=== PATIENT | male | born 2000 ===

== ENCOUNTER 2025-03-17 10:00 | Outpatient (RCR) | payer BC, SELFPAY ==
--- NOTE | 2025-03-17 14:42 | HO.IOP ---
Client case was reviewed and opened in teams.
[2025-03-17 14:43] VITALS: BP 128/80; PULSE 100; RESP 16; TEMP 36.6; O2SAT 98
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
== END 2025-03-17 14:10 | disposition home or self-care (01) ==
LOC: HO.IOP 10:00
PROVIDERS: Visit Provider Psychiatry & Neurology Psychiatry
DX: F41.1 Generalized anxiety disorder (principal); F12.90 Cannabis use, unspecified, uncomplicated; F39 Unspecified mood [affective] disorder
CPT/HCPCS: 90791; S9480

== ENCOUNTER 2025-04-04 13:11 | Emergency (ER) | payer BC, SELFPAY ==
[2025-04-04 13:32] VITALS: BP 128/60; PULSE 86; RESP 18; TEMP 36.4; O2SAT 96; BMI 26.6
[2025-04-04 13:38] VITALS: BP 128/60; PULSE 86; RESP 18; TEMP 36.4; O2SAT 96
--- NOTE | 2025-04-04 13:40 | PC.NURSE ---
24 M coming from a rehab facility for agitation, yelling, concerns for patients mood and some SI statements per sending rehab facility. A+Ox4, anxious, cooperative. Pt denies any SI or HI at this time. Safety check complete and pt changed over. Belongings secured. C/o chronic 6/10 back pain, no other complaints. RR even and unlabored, denies CP or SOB. Pt is ambulatory. pt is on a section 12, in chart.
--- NOTE | 2025-04-04 14:37 | PC.NURSE ---
Report called to RAFA Leonard in pod.
--- NOTE | 2025-04-04 14:41 | ED_ITS ---
HPI - Psych General Chief Complaint: Psychiatric Symptoms Stated Complaint: from PHP Time Seen by Provider: 04/04/25 14:17 Source: patient Mode of arrival: ambulatory Limitations: no limitations History of Present Illness ED Provider: Jayy York PA-C HPI Narrative: 24 yo male with history of generalized anxiety disorder, mood disorder, cannabis use who presents to the ER from partial hospitalization program for evaluation of agitation occurred at the program today. Patient reports that he had extreme frustration and a panic attack when he was at the program. He admits to yelling out and being very unreasonable. He states he feels like he was punished by being brought to the ER. He arrives to the ER calm, cooperative. He reports chronic back pain for last 3 months due to herniated disc that is causing him both physical and mental distress. He states he used to have a job, apartment, ?a normal life? until his back pain spiraled out of control. He is being followed by pain specialist and orthopedist, he has an appointment for a cortisone shot tomorrow in [place]. His mother is bringing him. He lives at home with his mother who is also present here in the ER today. Patient is expressing extreme frustration that his mental health providers are telling him to focus on his back pain and his back pain providers are telling him to focus on his mental health. He adamantly denies any suicidal thought or homicidal thought. He denies any hallucinations. complaint: feels depressed Onset (ago): month(s) Duration: constant History of same: Yes Context: significant life stressor Associated psychiatric symptoms: depression and racing thoughts Associated symptoms: denies other symptoms Treatments prior to arrival: placed on mental health hold Related Data Home Medications ?Medication ?Instructions ?Recorded ?Confirmed alprazolam 1 mg tablet 1 mg PO BID PRN anxiety komal ck 03/17/25 03/17/25 buspirone 10 mg tablet 10 mg PO BID 03/17/25 clonazepam 0.5 mg tablet 0.5 mg PO BID 03/17/2503/24 gabapentin 300 mg capsule 300 mg PO TID 03/17/2503/24 propranolol 20 mg tablet 20 mg PO DAILY PRN anxiety 0 03/17/25 03/24/25 ziprasidone HCl 40 mg capsule 40 mg PO BID 03/17/25 Allergies Allergy/AdvReac Type Severity Reaction Status Date / Time morphine Allergy Unknown Verified 04/04/25 13:37 Review of Systems Review of Systems: Yes all other systems are reviewed and are negative [facility] Social History Social History Household Members: Family Patient Tobacco Use Status: Never used Tobacco Smoked in Last 30 Days: No Use of substances other than those prescribed or required for medical reasons: No Advance Directives: No Advance Directives Information Provided: No Do you have a plan to hurt others: No Plan Physical Exam Exam: Exam: Appearance: Alert. Oriented X3. No acute distress. Head: normocephalic, atraumatic. Eyes: Pupils equal, round and reactive to light. ENT: Pharynx normal. No tonsillar swelling or exudate. Neck: Normal inspection. Neck supple. CVS: Normal heart rate and rhythm. Pulses normal. Respiratory: No respiratory distress. Breath sounds normal. Skin: Skin warm and dry. Normal skin color. Normal skin turgor. No rashes. Extremities: No lower extremity edema. No joint swelling. Neuro/psych: Oriented X 3. No motor deficit. No sensory deficit. CN II-XII intact. Normal speech and cognition, frustrated and hyperverbal at times. good insight. Mood is scared no SI or HI Vital Signs: Vital Signs: Last Vital Signs Temp 97.5 F 04/04/25 15:31 Pulse 86 04/04/25 15:31 Resp 18 04/04/25 15:31 BP 128/60 04/04/25 15:31 Pulse Ox 96 04/04/25 15:31 O2 Del Method Room Air 04/04/25 15:31 BMI result Body Mass Index 26.6 Medications Administered Discontinued Medications Generic Name Dose Route Start Last Admin Trade Name Vadimq PRN Reason Stop Dose Admin Acetaminophen 975 mg 04/04/25 15:07 04/04/25 15:23 Acetaminophen 325 Mg Tablet PO 04/04/25 15:08 975 mg ONCE ONE Administration Lidocaine 1 patch 04/04/25 15:07 04/04/25 15:23 Lidocaine 4 % Patch Adh..Patch TRANSDERMA 04/04/25 15:08 1 patch ONCE ONE Administration Protocol Lorazepam 1 mg 04/04/25 15:07 04/04/25 15:23 Lorazepam 1 Mg Tablet PO 09/29/25 15:08 1 mg ONCE ONE Administration Tramadol HCl 50 mg 04/04/25 15:07 04/04/25 15:22 Tramadol Hcl 50 Mg Tablet PO 04/04/25 15:08 50 mg ONCE ONE Administration Medical Decision Making Medical Decision Making MDM Narrative: 24-year-old male with history of generalized anxiety disorder, mood disorder, severe back pain for the last 3 months which is affecting his physical and mental health presenting to the hospital from partial hospitalization on a section 12 for evaluation of agitated behavior. Patient endorses having a ?mental breakdown and panic attack? today at the program. He was yelling out and agitated. He is very frustrated with his medical care and his psychiatric care. He arrives to the ER calm, cooperative. His mother is with him. He denies any suicidal or homicidal thoughts. He endorses nervousness and anxiety about treating his back pain. He feels he is unable to address fully his mental health issues because of his physical health. Seen by crisis team and deemed safe for discharge. I am in agreement, he lives at home with his mother who will take him home, bring him to [place] for his cortisone injection tomorrow, will plan to continue partial hospitalization program. Comfortable discharge home with outpatient follow-up. Mother and patient are in agreement. Differential Diagnosis Differential Diagnoses: The differential diagnosis associated with the presentation includes substance induced mood disorder, acute psychosis, adjustment disorder, acute pain reaction, PTSD, bipolar disorder, major depression with psychotic features Admission/Observation Consideration of admission/observation: Escalation of care including admission/observation considered Consult Healthcare Provider Management of the patient was discussed with: Electric Meter Repairer Apprentice care team leader/research psychologist Independent Historian Clinical information obtained from an independent historian. History obtained from or confirmed by: EMS External Record Review External record reviewed: Outpatient record Tests considered The following testing was considered but not selected: labs and tox, does not appear to be intoxicated Prescription Management I considered prescription management with: Pain Medication Chronic Conditions Patient?s care impacted by: Other (Chronic back pain) Social Determinants Patient?s care significantly limited by Social Determinants of Health including: Problems related to primary support group Critical Care Time Critical Care Time Critical Care Time: No Discharge Plan Discharge Clinical Impression: Acute anxiety Patient Disposition: Home, Self-Care Instructions: Acute Low Back Pain (ED), Anxiety (ED) Additional Instructions: it is important for you to get treatment for your back pain follow up with pain management tomorrow as scheduled continue with partial hospitalization follow up with your psychiatrist, therapist and medical provider If you develop new or worsening symptoms call 911 or come back to the ER for further evaluation. Prescriptions: No Action alprazolam 1 mg tablet 1 mg PO BID PRN (Reason: anxiety attack) clonazepam 0.5 mg tablet 0.5 mg PO BID buspirone 10 mg tablet 10 mg PO BID gabapentin 300 mg capsule 300 mg PO TID ziprasidone HCl 40 mg capsule 40 mg PO BID propranolol 20 mg tablet 20 mg PO DAILY PRN (Reason: anxiety) Interventions: [place]-Suicide Risk Severity Scale Last Done: 04/04/25 13:38 ED Discharge Assessment Last Done: 04/04/25 15:31 Discharge Date/Time: 04/04/25 15:49 Print Language: Icelandic
[2025-04-04] MEDS: Lidocaine 4 % Patch ADH..PATCH 1 PATCH TRANSDERMA (15:23)
[2025-04-04 15:31] VITALS: BP 128/60; PULSE 86; RESP 18; TEMP 36.4; O2SAT 96
--- OUTSIDE RECORDS SUMMARY | 2025-04-04 17:45 | XMS_ITS | Encounter Summary ---
Author Organization [facility] Address [address] [place] [id number] Care Team Providers Care Plaster Helper Name Role Phone Suraj Carlson MD Primary Care Provider [phone] Encounter Details Date Type Department Care Team ([facility] st Contact Info) Description 11/07/2020 Scanned Document [facility] [address] [facility] [address] [facility] [address] [place] [address] Provider, [facility] . Social History Tobacco Use Types Packs/Day Years Used Date Smoking Tobacco: Never Smokeless Tobacco: Never Alcohol Use Standard Drinks/Week Comments Not Currently 0 (1 standard drink = 0.6 oz pur e alcohol) Sex and Gender Information Value Date Recorded Sex Assigned at Not on file Legal Sex Male 9:32 AM EST Gender Identity Not on file Sexual Orientation Not on file COVID-19 Exposure Response Date Recorded In the last month, have you been in contact with someone who was confirmed or suspected to have Coronavirus / COVID-19? No / Unsure 11/02/2020 11:01 AM EDT documented as of this encounter Plan of Treatment Not on file documented as of this encounter Procedures Procedure Name Priority Date/Time Associated Diagnosis Comments ANORECTAL MANOMETRY Routine 11/07/2020 documented in this encounter Results * Anorectal Manometry (11/07/2020) us Historical Provider GI PROCEDURE ORDERABLES Cat l Result documented in this encounter Visit Diagnoses Not on filedocumented in this encounter Care Teams Plaster Helper Relationship Specialty Start Date End Date Suraj Carlson MD [address] [facility] [address] [place] [address] PCP - General Internal Medicine 11/01/20 documented as of this encounter
--- OUTSIDE RECORDS SUMMARY | 2025-04-04 17:45 | XMS_ITS | Encounter Summary ---
Author Organization [facility] Address [address] [place] [address] Care Team Providers Care Merchandise Support Associate Name Role Phone Suraj Carlson Primary Care Provider [phone] Reason for Visit * Reason Comments Medication Refill Encounter Details Date Type Department Care Team (Latest Contact Info) Description 10/17/2020 Refill [facility] Neurogastroenterology [place] [address] [place] [address] Jerome Sandy MD [address] [facility] [address] [place] [address] Chronic idiopathic constipation Social History Tobacco Use Types Packs/Day Years Used Date Smoking Tobacco: Never Smokeless Tobacco: Never Alcohol Use Standard Drinks/Week Comments Not Currently 0 (1 standard drink = 0.6 oz pur e alcohol) Sex and Gender Information Value Date Recorded Sex Assigned at Not on file Legal Sex Male 11:30 AM EST Gender Identity Not on file Sexual Orientation Not on file documented as of this encounter Plan of Treatment Not on file documented as of this encounter Visit Diagnoses Diagnosis Chronic idiopathic constipation Unspecified constipation documented in this encounter Care Teams Merchandise Support Associate Relationship Specialty Start Date End Date Suraj Carlson [address] [facility] [address] [place] [address] PCP - General 09/08/20 documented as of this encounter
--- OUTSIDE RECORDS SUMMARY | 2025-04-04 17:45 | XMS_ITS | Encounter Summary ---
Author Organization [facility] Address [address] [place] [address] Care Team Providers Care Aluminum Can Collector Name Role Phone Suraj Carlson Primary Care Provider Encounter Details Date Type Department Care Team (Late st Contact Info) Description 10/23/2020 Mobile [facility] Neurogastroenterology [place] [address] [place] [id number] Jerome Sandy MD [address] [facility] [address] [place] [address] Social History Tobacco Use Types Packs/Day Years [...] documented as of this encounter Visit Diagnoses Not on filedocumented in this encounter Care Teams Aluminum Can Collector Relationship Specialty Start Date End Date Suraj Carlson [address] [facility] [address] [place] [address] PCP - General 09/08/20 documented as of this encounter
--- OUTSIDE RECORDS SUMMARY | 2025-04-04 17:45 | XMS_ITS | Clinical Summary ---
Author Organization [facility] Address [facility] [place] [address] Care Team Providers Care Roller Pneumatic Name Role Phone None Primary Care Provider Unavailabl e Allergies No known active allergies Medications ketorolac (TORADOL) 10 mg Tablet Take 1 tablet by mouth every 6 hours as needed for Pain. 20 tablet 03/01/2018 Active ondansetron (ZOFRAN ODT) 4 mg Tablet, Rapid Dissolve Take 1 tablet by mouth every 8 hours as needed for Nausea. 12 tablet 03/01/2018 Active polyethylene glycol (MIRALAX) 17 gram Powder in Packet Take 17 g by mouth 2 times daily as needed (Constipati on). 14 each 3 03/01/2018 Active Social History Tobacco Use Types Packs/Day Years Used Date Smoking Tobacco: Never Smokeless Tobacco: Never Alcohol Use Standard Drinks/Week Comments No 0 (1 standard drink = 0.6 oz pur e alcohol) Sex and Gender Information Value Date Recorded Sex Assigned at Not on file Legal Sex Male 6:47 PM EDT Gender Identity Not on file Sexual Orientation Not on file Last Filed Vital Signs Vital Sign Reading Time Taken Comments Blood Pressure 135/74 04/20/2018 3:30 PM EDT Pulse 74 04/20/2018 3:30 PM EDT Temperature 36.9 C (98.4 F) 04/20/2018 3:30 PM EDT Respiratory Rate 18 04/20/2018 3:30 PM EDT Oxygen Saturation 97% 04/20/2018 3:30 PM EDT Inhaled Oxygen Concentration - - Weight 106.6 kg (235 lb) 03/01/2018 6:55 PM EDT Height 180.3 cm (5' 11 ) 03/01/2018 6:55 PM EDT Body Mass Index 32.78 03/01/2018 6:55 PM EDT Plan of Treatment Health Maintenance Due Date Last Done Comments HPV vaccine (1 - Male 3-dose series) 12/11/2014 HIV screen 12/11/2017 Hepatitis C Screening 12/11/2017 Hepatitis B vaccine (0-59 yrs) and Risk (1) 12/11/2018 Tetanus/Diphtheria/Pertussis Vaccines (1 - Tdap) 12/11 Covid-19 Vaccine (1 - season) 2025 Influenza (Flu) vaccine (1 o f 1 - Influenza standard series) 03/07/2025 Insurance Care Teams Roller Pneumatic Relationship Specialty Start Date End Date None None PCP - General 02/04/18
--- OUTSIDE RECORDS SUMMARY | 2025-04-04 17:45 | XMS_ITS | Encounter Summary ---
Author Organization [facility] Address [address] [place] [address] Care Team Providers Care Tilesetter Name Role Phone Suraj Carlson Primary Care Provider [phone] Reason for Visit * Reason Onset Date Comments Medication Refill 10/20/2020 Encounter Details Date Type Department Care Team (Latest Contact Info) Description 10/20/2020 Refill [facility] Neurogastroenterology [place] [address] [place] [phone] Jerome Sandy MD [address] [facility] [address] [place] [address] Bloating; Nausea; Generalized abdominal pain Social History Tobacco Use Types Packs/Day Years [...] as of this encounter Visit Diagnoses Diagnosis Bloating Flatulence, eructation, and gas pain Nausea Nausea alone Generalized abdominal pain Abdominal pain, generalized documented in this encounter Care Teams Tilesetter Relationship Specialty Start Date End Date Suraj Carlson [address] [facility] [address] [place] [address] PCP - General 09/08/20 documented as of this encounter
--- OUTSIDE RECORDS SUMMARY | 2025-04-04 17:45 | XMS_ITS | Clinical Summary ---
Author Organization [facility] Address [address] [place] [address] Care Team Providers Care Bag Patcher Name Role Phone Suraj Carlson Primary Care Provider [phone] Allergies No known active allergies Medications polyethylene glycol (miraLAx) 17 g packet Take 17 g by mouth Once before discharge. Active venlafaxine (EFFEXOR) 75 MG tablet Take 225 mg by mouth. Active venlafaxine (EFFEXOR-XR) 150 MG 24 hr capsule TAKE 1 CAPSULE BY MOUTH ONCE A DAY TAKE ALONG WITH 75MG CAPSULE 1 Active venlafaxine (EFFEXOR-XR) 75 MG 24 hr capsule Take by mouth daily. 1 Active bisacodyl (DULCOLAX) 5 MG EC tabletIndications :Chronic idiopathic constipation Take 2 tablets (10 mg total) by mouth daily as needed for constipation . 60 tablet 1 1 Active prucalopride succinate (MOTEGRITY) 2 MG tabletIndications :Chronic idiopathic constipation Take 1 tablet (2 mg total) by mouth daily. 30 tablet 1 1 Active cyproheptadine (PERIACTIN) 4 MG tabletIndications :Bloating,Nausea, Generalized abdominal pain Take 1 tablet (4 mg total) by mouth 3 (three) times a day as needed for allergies. 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 01/05/2020 Abdominal pain 06/15/2017 Generalized anxiety disorder 03/27/2017 Pervasive developmental disorder 03/27/2017 Resolved Problems Problem Noted Date Diagnosed Date Resolved Date Ileitis 03/27/2017 09/18/2023 Family History Medical History Relation Name Comments Anxiety disorder Father Depression Father Sleep apnea Father Heart disease Maternal Grandfather Hypertension Maternal Grandmother Irritable bowel syndrome Maternal Grandmother Anxiety disorder Mother Depression Mother Hyperlipidemia Mother Sleep apnea Mother Relation Name Status Comments Father Alive Maternal Grandfather Maternal Grandmother Alive Mother Alive Social History Tobacco Use Types Packs/Day Years [...] Sign Reading Time Taken Comments Blood Pressure 102/70 09/12/2020 9:50 AM EST Pulse - - Temperature - - Respiratory Rate - - Oxygen Saturation - - Inhaled Oxygen Concentration - - Weight 67.1 kg (148 lb) 10/09/2020 11:28 AM EDT Height 180.3 cm (5' 11 ) 10/09/2020 11:28 AM EDT Body Mass Index 20.64 10/09/2020 11:28 AM EDT Plan of Treatment Health Maintenance Due Date Last Done Comments Hepatitis C Virus Screening 1999 HIV Screening 12/11/2012 HPV Vaccines (1 - Male 3-dos e series) 12/11/2014 DTaP/Tdap/Td Vaccines (1 - Tdap) 12/11/2018 Hepatitis B Vaccines (1 of 3 - 19+ 3-dose series) 12/11/2018 Influenza Vaccine 02/04/2025 COVID-19 Vaccine (1 - 2023-2 5 season) 2025 Pneumococcal Vaccine: Pediat twan (0-5 Years) and At-Risk Patients (6 to 49 Years) Aged Out No longer eligible b ased on patient's age to complete this [place] [address] [facility] - HMO Care Teams Bag Patcher Relationship Specialty Start Date End Date Suraj Carlson [address] [facility] [address] [place] [address] PCP - General 09/08/20
--- OUTSIDE RECORDS SUMMARY | 2025-04-04 17:45 | XMS_ITS | Clinical Summary ---
Author Organization [address] Address [address] [place] [id number] Care Team Providers Care Child Care Education Coordinator Name Role Phone Suraj Carlson MD Primary Care Provider [phone] Allergies No known active allergies Medications * This document contains information received from the source organization and may not represent a complete record from that organization. bisacodyL (DULCOLAX) 5 mg EC tablet Take 10 mg by mouth daily as needed. 10/09/2020 Active cyproheptadine (PERIACTIN) 4 mg tablet Take 4 mg by mouth 4 (four) times daily with meals and nightly. 10/25/2020 Active polyethylene glycol (MIRALAX) 17 gram packet Take 17 g by mouth daily. Mix in 8 ounces of water, juice, soda, coffee or tea prior to taking. Active venlafaxine (EFFEXOR) 100 mg Immediate Release tablet Take 112 mg by mouth 2 (two) times daily. Active Social History Tobacco Use Types Packs/Day Years Used Date Smoking Tobacco: Never Smokeless Tobacco: Never Alcohol Use Standard Drinks/Week Comments Not Currently 0 (1 standard drink = 0.6 oz pur e alcohol) Sex and Gender Information Value Date Recorded Sex Assigned at Not on file Legal Sex Male 9:32 AM EST Gender Identity Not on file Sexual Orientation Not on file Plan of Treatment Health Maintenance Due Date Last Done Comments HIV screening 12/11/2012 Hepatitis C screening 12/11/2017 HPV vaccine series (3 - Male 3-dose series) 04/29/2018 02/04/2018, 10/11/2016 Influenza vaccine 02/04/2025 09/08/2019, , 05/05/2014, Additional history exists Covid-19 vaccine series (3 - 2024- season) 2025 11/16/2020, 10/26/2020 DTaP/TDaP Vaccines (8 - Td or Tdap) 02/21/2031 02/21/2021, 01/01/2011, 01/31/2005, Additional history exists Tetanus adult (Td q 10,TDAP once) 02/21/2031 02/21/2021, 01/01/2011, 01/31/2005, Additional history exists RSV Immunization (1 - 1-dose 75+ series) 12/11/2074 Hepatitis B vaccine series Completed 09/16, 02/18/2000, 01/10/2000 HIB Vaccines Completed 04/01/2001, 06/06, 04/07/2000, Additional history exists Pneumococcal Vaccine (2 - 49 years) Aged Out 04/01/2001, 06/17/2000, 04/07/2000 No longer eligible based on patient's age to complete this topic IPV Vaccines Completed 01/31/2005, 07/08, 04/07/2000, Additional history exists MMR Vaccines Completed 01/31/2005, 12/22/2000 Varicella Vaccines Completed 01/01/2011, 12/22/2000 Meningococcal Vaccine Completed 10/11/2016, 011 Hepatitis A Vaccines Aged Out No long er eligible based on patient's age to complete this topic Meningococcal B Vaccine Aged Out No l onger eligible based on patient's age to complete this topic Rotavirus Vaccines Aged Out No longer eligible based on patient's age to complete this topic Insurance [facility] Care Teams Child Care Education Coordinator Relationship Specialty Start Date End Date Suraj Carlson MD [facility] [address] [place] [id number] PCP - General Internal Medicine 11/01/20
--- OUTSIDE RECORDS SUMMARY | 2025-04-04 17:45 | XMS_ITS | Encounter Summary ---
Author Organization [facility] Address [address] [place] [address] Care Team Providers Care Residential Driver Name Role Phone Suraj Carlson Primary Care Provider [phone] Reason for Visit * Reason Comments Other Encounter Details Date Type Department Care Team (Late st Contact Info) Description 11/16/2020 Telephone [facility] Neurogastroenterology [place] [address] [place] [id number] Jerome Sandy MD [address] [place] [address] Other Social History Tobacco Use Types Packs/Day Years [...] on file documented as of this encounter Miscellaneous Notes * Telephone Encounter - Jerome Sandy MD - 11/16/2020 1:49 PM EDT I???m unable to see these and he has transitioned his care to [place] and Dr Jordan. It???s best to stick with them until a treatment plan is developed. If no improvement we can take the baton. documented in this encounter Plan of Treatment Not on file documented as of this encounter Visit Diagnoses Not on filedocumented in this encounter Care Teams Residential Driver Relationship Specialty Start Date End Date Suraj Carlson [address] [place] [address] PCP - General 09/08/20 documented as of this encounter
== END 2025-04-04 15:49 | disposition home or self-care (01) ==
LOC: HO.ED 15:42
PROVIDERS: Emergency Provider Emergency Medicine; PCP Internal Medicine
DX: F41.9 Anxiety disorder, unspecified (principal); G89.29 Other chronic pain; M54.9 Dorsalgia, unspecified; F39 Unspecified mood [affective] disorder; Z79.899 Other long term (current) drug therapy
CPT/HCPCS: 99285; S9485

== ENCOUNTER 2025-04-07 11:30 | Outpatient (RCR) | payer BC, SELFPAY ==
[2025-03-17 14:30] VITALS: BP 128/80; PULSE 100; RESP 16; TEMP 36.6; O2SAT 98
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
--- NOTE | 2025-03-22 07:57 | HO.PHP ---
PHP staff member completed the online referral for OP therapy through [facility] and is awaiting on an appointment date and time.
--- NOTE | 2025-03-23 12:57 | HO.PHP ---
Manuel informed [facility] staff member that he will be leaving early today due to being in excruciating pain with his back. Manuel informed the clinician that he has no concerns around SI, plan or intent but did note that the pain is so bad that he feels it is going to kill him. [facility] staff member encouraged Manuel if his back pain is that severe to go to the ED or an urgent care. Manuel said what is that going to do for me and mentioned he does not want to go and he needs to leave now because his mother is waiting for him. Manuel did state that he was on the phone earlier with his doctor who will be seeing him in 6 weeks. Manuel mentioned if his pain improves he will be in attendance to program tomorrow. [facility] staff member was receptive.
--- NOTE | 2025-03-24 10:00 | HO.PHP ---
PHP admin, Tanisha, informed the team that Manuel will not be in attendance to program due to severe back pain.
--- NOTE | 2025-03-24 11:22 | HO.PHP ---
PHP staff member received an appointment for OP therapy through [facility]. Manuel's therapy appointment is scheduled for April 04, 2025 at 12 PM with Kavita Rubi via telehealth. ;
--- NOTE | 2025-03-25 08:00 | PC.NURSE ---
Staff report that patient mother called and stated that patient is c/o severe back pain thus will not be in the program today. He has another MRI scheduled for tomorrow.
--- NOTE | 2025-03-25 10:01 | HO.PHP ---
PHP admin, Tanisha, informed the team that Manuel's mother called stating that he will not be in attendance to program due to his chronic pain where he is unable to move. Manuel's mother voiced that he has an MRI scheduled for tomorrow. There were no safety concerns reported and he will be in attendance to program on Friday.
--- NOTE | 2025-03-28 17:00 | HO.PHP ---
PHP staff member reached out to Manuel but his phone went to voicemail, therefore, PHP staff member reached out to Manuel's mother Anna. Anna disclosed that Manuel wasn't in attendance to program today because he had a doctors appointment and asked if we had received that message. PHP staff member noted that we had, which is why she is reaching out due to our attendance policy. PHP staff member expressed that Manuel has missed 3 days of the program and has done 2 half days in the program due to his pain. Anna voiced that Manuel really would like to return to the program. PHP staff member said we would like for him as well and at this time our recommendation is that he addresses his medical issues because he is unable to get support around his mental health due to the pain being a distractions. Manuel's mother agreed and also voiced that they will be reaching out to pain management. [facility] staff encouraged her to have Manuel to call when he is feeling better and asked if he is hearing this conversation at this time. Manuel's mother said he is not but she can get him. Anna mentioned that she also knows that Manuel is awaiting on a therapy appointment and she would like to make sure he has that prior to discharging. PHP staff member said she was able to obtain that appointment which will be on April 04, 2025 at 12 with Caryl Rubi via [employer]. Manuel's mother was receptive. Manuel then came on the phone and was begging to not be discharged. PHP staff said that we strongly encourage that he focuses on his medical issues so that he can get everything he can from our program. Manuel said that he needs this and he can't discharge. Manuel said his orthopedist doctor told him that he needs this program because his pain is psychosomatic. Manuel was very disregulated and said that he feels as though he is getting punished for being in pain. PHP staff apologized for him feeling that way and said that she just would like for him to get the support needed. Manuel said it is very confusing because the program is encouraging him to focus on addressing his pain and his doctor is telling him to come to our program or inpatient. [facility] explored why his doctor would recommend inpatient. Manuel said because he was crying in his office. Manuel was struggling to regulate and kept stating he is being punished for what he thought was doing the right thing. [facility] staff informed Manuel that he could come to our program tomorrow and he could further discuss this with the med provider here. Manuel kept saying he can't go inpatient because of his pain. PHP staff tried to reassure him that there are medical doctors available as well if he is struggling with pain. Maneul was unable to hear what the clinician was informing him and continued to note that he is getting in trouble. PHP staff suggested that we contact crisis since he appears to be dysregulated. Manuel said he is fine and is crying cause he is in pain and feels no one is listening. Manuel kept crying stating he can't be discharged. PHP staff relayed again that we are not discharging him from the program but he cannot miss any additional days or leave early. Manuel appeared receptive and said he will sit through the pain cause he needs to work on his mental health. PHP staff did express her concerns around him receiving the level of support needed while here because she feels that his pain level is taking away from the therapeutic process. Manuel agreed but he said that his doctor is saying he needs to be at partial. PHP staff explored if he could get a second opinion if he is unsatisfied with this doctors response. Manuel said that was his second opinion and you can't get a third opinion with workers comp, they only say you can get two. [facility] staff was receptive and encouraged him to come tomorrow. Manuel apologized and said he will be in attendance to program tomorrow.
--- NOTE | 2025-03-30 14:14 | P.PNPSP_ITS ---
Subjective Subjective Date of Service: 03/30/25 Reason For Visit: depression Interim History: Met with patient; discussed with team; reviewed chart Patient reports that he is very frustrated upset with his outpatient PCP, pain management provider orthopedic doctor since he continues to be in pain and feels these providers are dismissive, telling him that his pain is primarily psychiatrically caused. Patient shares that 3 months ago, with the development of pain, his life has changed and he is unable to take care himself in any way. Discussed patient's ongoing depression and anxiety. Patient recently contacted his outpatient provider who restarted him on Cymbalta. Tactical Deception Plans Officer discussed that it is not tenable to have 2 different providers prescribing medications. Since he is going to his outpatient provider which seems to be his preference (even though he is still in partial day program), senior mortgage underwriter will defer medication management to his outpatient provider. Tactical Deception Plans Officer reviewed his medication regimen and went over options that he can discuss with his outpatient provider including continuing to titrate Cymbalta and/or go up on his buspirone. Patient reports side effects from Geodon, Risperdal, Lamictal Mental Status Exam Mental Status Exam Narrative: Pt is alert and oriented; behavior is irritable but cooperative; patient is not in distress; dressed in casual attire, baseball hat, glasses, adequate/appropriate grooming; mood is described as frustrated and affect congruent; eye contact appropriate; Speech is normal rate, volume and prosody and not pressured; no psychomotor agitation/retardation present; thought process is organized and goal directed; Thought content is on tx; otherwise pertinent to relevant topics and without any delusional content, paranoid ideations or grandiosity; denies any SI/HI. Denies AVH and there is no evidence of perceptual disturbance. Patients insight and judgment appear intact. Assessment & Plan Assessment & Plan (1) Mood disorder: Status: Acute Code(s): F39 - Unspecified mood [affective] disorder (2) DANTE (generalized anxiety disorder): Status: Acute Code(s): F41.1 - Generalized anxiety disorder (3) Cannabis abuse: Status: Acute Code(s): F12.10 - Cannabis abuse, uncomplicated (4) Pain disorder associated with psychological factors and medical condition: Status: Acute Code(s): F45.42 - Pain disorder with related psychological factors Plan 03/30 Patient reports that he is very frustrated upset with his outpatient PCP, pain management provider orthopedic doctor since he continues to be in pain and feels these providers are dismissive, telling him that his pain is primarily psychiatrically caused. Patient shares that 3 months ago, with the development of pain, his life has changed and he is unable to take care himself in any way. Discussed patient's ongoing depression and anxiety. Patient recently contacted his outpatient provider who restarted him on Cymbalta. Tactical Deception Plans Officer discussed that it is not tenable to have 2 different providers prescribing medications. Since he is going to his outpatient provider which seems to be his preference (even though he is still in partial day program), senior mortgage underwriter will defer medication management to his outpatient provider. Tactical Deception Plans Officer reviewed his medication regimen and went over options that he can discuss with his outpatient provider including continuing to titrate Cymbalta and/or go up on his buspirone. -Patient reports side effects from Megan Rayl Lamictal Plan: Patient choosing to use outpatient psychiatric provider for medication management; patient agrees to inform PHp of all medication updates Patient educated on: diagnosis, medication risk/benefits and medical condition Informed Consent: understands Reason for contiued partial hosp. stay Substantial Risk for: med/psych decompensation Certification I certify that partial hospital treatment is medically necessary due to the symptoms and problems resulting from the patient's mental illness and the failure to treat the patient at the partial hospital level of care would likely result in the patient requiring inpatient psychiatric care which could not be prevented at a less intensive level of care. Total time managing care of this patient today ____ minutes. Discharge Plan Discharge Attending provider: Nohemi Larson Medications: No Action alprazolam 1 mg tablet 1 mg PO BID PRN (Reason: anxiety attack) clonazepam 0.5 mg tablet 0.5 mg PO BID buspirone 10 mg tablet 10 mg PO BID gabapentin 300 mg capsule 300 mg PO TID ziprasidone HCl 40 mg capsule 40 mg PO BID propranolol 20 mg tablet 20 mg PO DAILY PRN (Reason: anxiety) Stand Alone Forms: Patient Portal Discharge page Print Language: Tamazight
--- NOTE | 2025-04-04 13:21 | HO.PHP ---
[facility] staff member was eating her lunch, when Manuel entered her office and presented as angry and struggling to control his emotions. Manuel expressed frustration that he was unable to complete his intake appointment with his new individual therapist and it had to be rescheduled for Friday. [facility] staff was trying to explore why the appointment was rescheduled and he kept blaming the clinician for not allowing him to reschedule his appointment and was making statements that were not said. [facility] staff member informed Manuel that she strongly encouraged him to attend his appointment because he does not have a therapist and she wanted to make sure he would be seen prior to leaving. Manuel said that he had to reschedule because he didn't have wifi. Manuel continued to use profanity and was struggling to regulate. Dr. Larson walked into the room to see what was occurring. [facility] staff member relayed to Manuel that she was unaware that he was unable to connect to the wifi and if he had informed us that he couldn't connect, we would have helped him so he didn't miss his appointment. Manuel continued to use profanity to voice his frustration around missing the group. Due to him struggling to regulate, Dr. Larson had suggested meeting with Manuel. Dr. Larson ended up writing a section 12 on him and they went down to the ED to meet with the CARE team. Manuel did not want to go but was able to walk down to the ED with Dr. Larson and security following behind.
--- NOTE | 2025-04-04 13:26 | PC.NURSE ---
Patient is being escorted to the ER with security and PHP staff on a section 12. According to the Section 12 he was making suicidal threats, paranoia, refusing treatment, mentally unstable crying and screaming, no insight. Nurse to Nurse done with ER charge nurse Shannon and Care Team members Feng Kemp were notified.
--- NOTE | 2025-04-04 19:54 | HO.PHPPROGNO ---
Subjective Subjective Date of Service: 04/04/25 Reason For Visit: depression Interim History: Patient was seen charging toward therapist office, he abruptly entered and began yelling at her, and waving his arms around demonstrably stating he was so angry and hurt. I should just . You all hate me, I should just and end this . He was difficult to relocate but eventually he was redirected to group room C, where there was more space. Patient was difficult to engage, continued to escalate, started yelling at this racebook writer, getting very agitated, activated, unable to sit, I'm in f&*kng pain . He was unable to calm himself and engaged in conversation about his medication (or past treatment - aside from responding saying Geodon cause N/V and blood in his BMs). He was pacing around angrily screaming, pressured speech, repeatedly asking why does she hate me? over and over and screaming within inches of my face that he hated her and growing acutely agitated and was unable to be de-escalated. There were a couple instances he would come toward me unexpectedly, repeating how angry he was and get with inches of my face despite efforts to give him a lot of space. within inches of my face He immediately had an emotional outburst started crying uncontrollably, and throwing himself around on the floor, thrashing. At one point he was on his knees crawling up to this racebook writer, pleading and resisted encouragement to get off his knees (for fear he might further injure his back), and sobbing uncontrollably on the floor, begging Medication Compliance: Yes Side effects from medications: No Attending Groups: Yes Mental Status Exam Mental Status Exam Narrative: Pt is alert and oriented; behavior is irritable but cooperative; patient is not in distress; dressed in casual attire, baseball hat, glasses, adequate/appropriate grooming; mood is described as frustrated and affect congruent; eye contact appropriate; Speech is normal rate, volume and prosody and not pressured; no psychomotor agitation/retardation present; thought process is organized and goal directed; Thought content is on tx; otherwise pertinent to relevant topics and without any delusional content, paranoid ideations or grandiosity; denies any SI/HI. Denies AVH and there is no evidence of perceptual disturbance. Patients insight and judgment appear intact. Assessment & Plan Assessment & Plan (1) Mood disorder: Status: Acute Code(s): F39 - Unspecified mood [affective] disorder (2) DANTE (generalized anxiety disorder): Status: Acute Code(s): F41.1 - Generalized anxiety disorder (3) Cannabis abuse: Status: Acute Code(s): F12.10 - Cannabis abuse, uncomplicated (4) Pain disorder associated with psychological factors and medical condition: Status: Acute Code(s): F45.42 - Pain disorder with related psychological factors Patient educated on: diagnosis, medication risk/benefits and medical condition Informed Consent: understands Reason for contiued partial hosp. stay Substantial Risk for: med/psych decompensation Certification I certify that partial hospital treatment is medically necessary due to the symptoms and problems resulting from the patient's mental illness and the failure to treat the patient at the partial hospital level of care would likely result in the patient requiring inpatient psychiatric care which could not be prevented at a less intensive level of care. Total time managing care of this patient today ____ minutes. Discharge Plan Discharge Attending provider: Nohemi Larson Medications: No Action alprazolam 1 mg tablet 1 mg PO BID PRN (Reason: anxiety attack) clonazepam 0.5 mg tablet 0.5 mg PO BID buspirone 10 mg tablet 10 mg PO BID gabapentin 300 mg capsule 300 mg PO TID ziprasidone HCl 40 mg capsule 40 mg PO BID propranolol 20 mg tablet 20 mg PO DAILY PRN (Reason: anxiety) lurasidone [Latuda] 20 mg Tablet 20 mg PO QPM Patient Comments: Per Dr. Larson, patient prescribed this medication from his outside prescriber. Rx Instructions: must administer with food (at least 350 calories) Stand Alone Forms: Patient Portal Discharge page Print Language: Choose Not To Answer
--- NOTE | 2025-04-05 14:45 | HO.PHP ---
[facility] staff member, returned Manuel's voicemail in which he was exploring if he could return to the program for his discharge. [facility] staff member engaged in conversation with Manuel and informed him that he will be able to attend program for his discharge today. Manuel was receptive and said he has a couple questions first. PHP staff member was receptive. Manuel said that he would need me to promise that we aren't going to involuntarily detain him again. PHP staff member informed him that she cannot promise him that that is not going to occur. [facility] staff member informed Manuel that if he presents dysregulated and unable to regulate like he did yesterday then we would reach out to security if we had concerns around safety of himself or others. Manuel asked for the clinician to provide an example of what that would look like. PHP staff member said what he was doing yesterday such as swearing at the clinical team, unable to control his emotions, and struggling to hear what the staff are saying to help support him. Manuel said that he would like to come in and discuss that the traumatic event and how it made him feel. Manuel said he will make sure he stays calm and regulated but he will be tearful. Manuel was expressing his concerns still and noting that he feels as though we are punishing him and that we are going to have security there for when he gets here. Manuel stated he feels we are setting him up. PHP staff member informed him that if he is regulated and calm, we have no need to have security present and we do not have them coming in at this time. Throughout the conversation Manuel was agitated but able to regulate. [facility] staff member informed the team of his presentation and concerns around how he may become emotionally dysregulated again due to him wanting to process the situation that occurred yesterday. We then reached out to Manuel as a team, Dr. Larson, Mulugeta, Nancy and I were all present for the phone call to discuss appropriateness and to further assess his emotional state prior to attending program.
--- NOTE | 2025-04-05 15:12 | HO.PHP ---
[facility] staff member received a voicemail from Manuel's mother, Anna asking for the clinician to call her back. PHP staff member reached back out to Anna, in which Maryan expressed concerns revolving around the phone call this morning and lack of follow through pertaining the doctor. PHP staff member informed Anna that she is unaware of what was discussed with the med provider yesterday and she is unable to speak on her behalf. Anna asked the clinician if she could let Dr. Larson know that she would like a phone call back. PHP staff member voiced that she will. Anna disclosed that Manuel feels like the whole team hates him right now. PHP staff member voiced that we do not hate him and we would like to support him in the best way that we can. PHP staff member explored with the mother if she is aware of when Manuel's next therapy appointment was rescheduled for. Anna said that it is April 08, 2025 at noon but they haven't received anything stating that. [facility] staff informed Anna that when she scheduled the first appointment she was informed that Manuel would need to set up a portal and that the appointment most likely will be noted there. Anna said she will follow up with Manuel to see if it is in the portal. PHP staff also expressed that the previous appointment they voiced that the day of the appointment they would send a link for him to access that appointment. Anna was receptive and thanked the clinician. PHP staff member informed Anna if she has any other questions to feel free to reach out. Anna was receptive. PHP staff member received a phone about 10 minutes after hanging up with Anna, in which Anna stated that Manuel would like to talk with her. Manuel apologized to the clinician for how he responded and stated that he feels as though the clinical staff dislike him. PHP staff reminded Manuel that no one here dislikes him and that we want to support him in the best way possible. Manuel continued to apologize for his behaviors and said he knows that but that is how he is feeling. Manuel was upset around not being able to come in for the day to say his goodbye to the group members. Manuel then expressed that he feels he may need inpatient. PHP staff member explored why he feels that way and if he is suicidal. Manuel stated no concerns around SI, plan or intent but expressed concerns around not knowing how to regulate his emotions. Manuel said he didn't want to go inpatient yesterday because he wanted to go to his medical appointment but after that he can go. [facility] staff informed Manuel if he feels that is necessary he can go to his local ED or contact crisis. Manuel was not expressing any safety concerns at this time. Manuel continued to apologize for his behaviors and expressed that he needs to work on ways to cope with his emotions better along with his pain. [facility] staff provided Manuel with suggestions of what he can work on in the current moment. Manuel appeared receptive. [facility] staff member engaged in active listening and provided Manuel with support.
--- NOTE | 2025-04-07 21:36 | PM.EVENT ---
Event Note Date of Service: 04/12/25 Event Note: Patient was scheduled to come to [facility] Time Spent With Patient Time: Total time managing care of this patient today ____ minutes.
--- NOTE | 2025-04-07 21:36 | P.EN_ITS ---
Event Note Date of Service: 04/12/25 Event Note: Patient was scheduled to come to [facility] Time Spent With Patient Time: Total time managing care of this patient today ____ minutes.
--- NOTE | 2025-04-08 14:24 | HO.PHP ---
Reached out to Manuel to collect discharge information but his mother answered the phone stating he wasn't available. Manuel's mother asked that the clinician completes the discharge information on Friday. PHP staff member was receptive.
--- NOTE | 2025-04-11 12:51 | HO.PHP ---
[facility] staff member reached out to Manuel to gather information regarding his discharge. A voicemail was left and PHP staff member is awaiting on a call back at this time.
--- NOTE | 2025-04-12 14:58 | HO.PHP ---
[facility] staff member reached out to Manuel again to complete discharge paperwork. Manuel did not answer the phone again, therefore, PHP staff member informed him that she is going to move forward with completing the discharge paperwork since it has been difficult trying to get in contact with him. PHP staff member informed him if he has any additional questions to please reach out to Tanisha.
== END 2025-04-07 23:59 | disposition home or self-care (01) ==
LOC: HO.PHPA 11:30
PROVIDERS: Visit Provider Psychiatry & Neurology Psychiatry
DX: F41.1 Generalized anxiety disorder (principal); F39 Unspecified mood [affective] disorder; F45.42 Pain disorder with related psychological factors; F12.10 Cannabis abuse, uncomplicated; Z79.899 Other long term (current) drug therapy
CPT/HCPCS: 90791; 90853